=== PATIENT | female | born 1990 | race Two or more races ===

== ENCOUNTER 2024-11-03 22:46 | Emergency (ER) | payer MEDICAID, SELFPAY ==
[2024-11-03 22:47] VITALS: BMI 23.9
[2024-11-03 23:04] VITALS: BP 124/80; PULSE 74; RESP 18; TEMP 37.2; O2SAT 100
[2024-11-03] MEDS: METOCLOPRAMIDE 5 MG TABLET 10 MG PO (23:20)
[2024-11-03 23:28] LABS: Collection Type, Urine Clean Catch
[2024-11-03 23:49] LABS: Basophils % (Auto) 0 % (0-2.5); Eosinophils % (Auto) 0 % (0-10); Hematocrit 25.2 % (36.0-46.0); Immature Granulocytes % (Auto) 0 % (0-0); Immature Granulocytes Auto 0.01 Thou/mm3 (0.00-0.00); Lymphocytes # (Auto) 1.4 Thou/mm3 (1.0-4.8); Lymphocytes % (Auto) 23 % (10-50); Mean Corpuscular HGB Conc 27.8 g/dl (31.0-37.0); Mean Corpuscular Hemoglobin 20.7 pg (25.0-35.0); Mean Corpuscular Volume 75 fL (80-100); Monocytes # (Auto) 0.8 Thou/mm3 (0.0-0.8); Monocytes % (Auto) 12 % (0-12); Neutrophils # (Auto) 4.2 Thou/mm3 (1.8-7.7); Neutrophils % (Auto) 65 % (37-80); Nucleated Red Blood Cell % 0 /100 WBC (0); Platelet Count 323 Thou/mm3 (140-440); RDW Standard Deviation 58.8 fL (36.4-46.3); Red Blood Count 3.38 Miln/mm3 (4.00-5.20); White Blood Count 6.4 Thou/mm3 (3.6-11.0)
[2024-11-04] VITALS (12 sets, daily range): BP systolic 106–122; BP diastolic 58–69; PULSE 62–93; RESP 16–18; TEMP 36.8–37.4; O2SAT 100
[2024-11-04] LABS: Bilirubin,Urine Negative (Negative); Blood,Urine Negative (Negative); Clarity,Urine Turbid (Clear/Hazy); Color,Urine Lt-Yellow (Lt Yel-Yel); Culture Indicated,Urine Not Indicated; Glucose, Urine Negative (Negative); Ketones,Urine Negative (Negative); Leukocyte Esterase,Urine Positive (Negative); Nitrite,Urine Negative (Negative); Protein,Urine Trace (Neg - Trace); RBC,Urine 2 /hpf (0-3); Specific Gravity,Urine 1.023 (1.001-1.035); Squamous Epithelial Cell,Urine 10 /hpf (0-5); Urobilinogen,Urine Negative mg/dL (0.0-1.0); WBC,Urine 5 /hpf (0-5)
[2024-11-04 00:02] LABS: Amphetamine/Methamp Scrn,U Positive (Negative); Barbiturate Screen,Urine Negative (Negative); Benzodiazepines Screen,Urine Negative (Negative); Benzoylecgonine Screen, Ur Negative (Negative); Fentanyl Screen,Urine Negative (Negative); Opiate Screen,Urine Negative (Negative); THC Screen,Urine Positive (Negative)
[2024-11-04 00:04] LABS: HCG Qualitative,Urine Positive
--- NOTE | 2024-11-04 00:08 | XR_ITS ---
Examination: OB Transvaginal ultrasound of the pelvis, complete Technique: Transvaginal sonographic images pelvis performed using celestin scale imaging Exam date and time: November 04, 2024 0114 hours INDICATIONS: Recent positive test, patient feels sick today FINDINGS: Uterus 11.7 x 7.3 x 8.9 cm pole 1.174 corresponds to 8 weeks 1 day gestational age Cardiac motion 173 BPM Right ovary 3.5 x 1.8 x 2.2 cm arterial flow Left ovary obscured by bowel gas IMPRESSION: Viable intrauterine gestation 8 weeks 1 day.
[2024-11-04 00:44] LABS: Alanine Aminotransferase 8 U/L (10-49); Albumin, Serum 4.4 gm/dL (3.5-5.0); Albumin/Globulin Ratio 1.5 (1.2-2.2); Alcohol, Blood Medical < 3.0 mg/dL (0-10.0); Alkaline Phosphatase 76 U/L (46-116); Anion Gap 7 (7-16); Aspartate Amino Transferase 19 U/L (0-34); BUN/Creatinine Ratio 15 Ratio (12-20); Bilirubin,Total 0.4 mg/dL (0.3-1.2); Blood Urea Nitrogen 9 mg/dL (9-23); Calcium 9.5 mg/dL (8.3-10.6); Calcium (Corrected) 9.5 mg/dL (8.5-10.1); Carbon Dioxide 25.2 mMol/L (20.0-31.0); Chloride 105 mMol/L (98-107); Creatinine (Component) 0.6 mg/dL (0.6-1.3); Estimated Creatinine Clearance 108.3 mL/min (>60); Globulin 2.9 gm/dL (2.3-3.5); Glucose 105 mg/dL (74-106); Lipase 37 U/L (12-53); Osmolality,Calculated 272 (275-295); Potassium 4.2 mMol/L (3.4-5.1); Sodium 137 mMol/L (136-145); Total Protein 7.3 gm/dL (5.7-8.2); eGFR > 60 See Note
[2024-11-04 01:15] LABS: Prothrombin Time 10.9 Seconds (9.0-12.2)
[2024-11-04 02:43] LABS: Beta HCG,Quantitative 274419 mIU/mL (<5.0)
--- NOTE | 2024-11-04 03:17 | PRELIM_ITS ---
Obstetric ultrasound (transvaginal) with doppler and wave doppler spectral analysis. November 04 4 at 0114 hours Clinical history: Nausea/vomiting; incidentally positive.Technique: Real-time ultraso und was performed using Duplex scanning including arterial inflow, venous outflow, color and spectral Doppler analysis of both ovaries.Comparison: No prior study is available for comparison. Findings:Th ere is an intrauterine gestation with a single live fetus of mean gestational age 8 weeks and 1 days (CRL= 1.74 cm). cardiac activity is present at heart rate of 173 beats per minute. The yolk sa c is visualized.The uterus measures 11.7 x 7.3 x 8.9 cm.The right ovary measures 3.5 x 1.8 x 2.2 cm a nd is unremarkable. Normal blood flow in the right ovary with normal wave Doppler spectral analysis.T he left ovary was not visualized.There is no free fluid in the pelvis.Impression:Intrauterine gestati on with a single live fetus of mean gestational age 8 weeks and 1 days. Report Electronically Signed By: Alexandru Salgado 11/04/2024 3:16:37 AM [EST]
--- NOTE | 2024-11-04 05:27 | PD.EDNV ---
Nausea/Vomit./Diarrhea-RME/HPI General Chief complaint: Nausea/Vomiting/Diarrhea Stated complaint: VOMITING Time Seen by Provider: 11/03/24 23:12 Arrival date/time: 11/03/24 22:46 34F with history of SAJI and drug use presents to ED with several days of N/V. Patient denies diarrhea, dysuria, and vaginal bleeding. Limitations: no limitations Related Data Previous Rx's ?Medication ?Instructions ?Recorded cefpodoxime 200 mg tablet 200 mg PO BID #21 tabs 06/07/20 ferrous fumarate 325 mg (106 mg 325 mg PO BID #20 tabs 06/07/20 iron) tablet doxylamine 10 mg-pyridoxine (vit 1 tab PO QDAY #60 tabs 11/04/24 B6) 10 mg tablet,delayed release (Diclegis) Allergies Allergy/AdvReac Type Severity Reaction Status Date / Time No Known Allergies Allergy Verified 11/03/24 22:49 Review of Systems Review of Systems Systems Reviewed: All systems reviewed, normal except as documented Constitutional Constitutional: Reports system reviewed and no additional complaints, except as documented, Denies fever(s) and Denies headache(s) ENT Ears, Nose, Mouth, and Throat: Denies disequilibrium and Denies headache(s) Cardiovascular Cardiovascular: Reports system reviewed and no additional complaints, except as documented, Denies chest pain and Denies dyspnea Respiratory Respiratory: Reports system reviewed and no additional complaints, except as documented, Denies cough and Denies dyspnea Gastrointestinal Gastrointestinal: Reports system reviewed and no additional complaints, except as documented, Reports as per HPI, Denies abdominal pain, Reports nausea and Reports vomiting Neurologic Neurologic: Reports system reviewed and no additional complaints, except as documented, Denies confusion, Denies disequilibrium and Denies headache(s) Psychiatric Psychiatric: Denies confusion Past Medical History Past Medical History NEUROLOGIC: Negative Neurological Disorders CARDIAC: Negative Cardiac Disorders or Congestive Heart Failure RESPIRATORY: Negative Chronic Obstructive Pulmonary Disease (COPD) or Asthma GENITOURINARY: Negative Genitourinary Disorders or Renal Disease REPRODUCTIVE: Positive Previous Pregnancies; Negative Pelvic Inflammatory Disease MUSCULOSKELETAL: Negative Musculoskeletal Disorders ENDOCRINE: Negative Diabetes Mellitus Type 1 or Diabetes Mellitus Type 2 HEMATOLOGIC: Positive Anemia; Negative Sickle Cell Disease OTHER HISTORY: Negative Autoimmune Disease, Blood Transfusions, Anesthesia Reactions, MRSA or Cancer Social History SMOKING STATUS: Current every day smoker ED Exam General Limitations: Present no limitations General appearance: Present alert and in no apparent distress Head Head exam: Present atraumatic Eye Eye exam: Present normal appearance, PERRL and EOMI ENT ENT exam: Present normal exam, normal oropharynx and mucous membranes moist Neck Neck exam: Present normal inspection, full ROM and trachea midline Chest Chest inspection: Present normal inspection and symmetric chest wall rise Respiratory Respiratory exam: Present normal lung sounds bilaterally Cardiovascular Cardiovascular exam: Present regular rate, normal rhythm and normal heart sounds Abdominal Exam Abdominal exam: Present soft and normal bowel sounds Extremities Exam Extremities exam: Present normal inspection and full ROM Back Exam Back exam: Present normal inspection and full ROM Neurological Exam Neurological exam: Present alert, oriented X3 and CN II-XII intact Psychiatric Psychiatric exam: Present normal affect and normal mood Skin Skin exam: Present warm, dry, intact and normal color Course Quality Measures none Orders Category Date Time Status Insert IV NOW Care 11/04/24 00:09 Active US OB transvaginal Stat Exams 11/04/24 00:08 Taken Alcohol, Blood Medical Stat Lab 11/03/24 23:31 Completed Beta HCG,Quantitative Stat Lab 11/03/24 23:31 Completed CBC Stat Lab 11/03/24 23:31 Completed CMP [Comprehensive Metabolic Panel] Stat Lab 11/03/24 23:31 Completed Drug Screen,Urine Stat Lab 11/03/24 23:18 Completed HCG Qualitative,Urine Stat Lab 11/03/24 23:18 Completed INR [Prothrombin Time with INR] Stat Lab 11/04/24 00:34 Completed Lipase Stat Lab 11/03/24 23:31 Completed PTT [Partial Thromboplastin Time] Stat Lab 11/04/24 00:34 Completed Type and Screen Stat Lab 11/04/24 00:34 Completed Urinalysis, C/S if Indicated Stat Lab 11/03/24 23:18 Completed prbc [Red Blood Cells] Stat Lab 11/04/24 00:34 Completed Metoclopramide [Reglan] Med 11/03/24 23:12 Discontinued 10 mg PO X1 ONE Vital Signs Vital signs: Vital Signs Temperature 98.9 F 11/03/24 23:04 Pulse Rate 74 11/03/24 23:04 Respiratory Rate 18 11/03/24 23:04 Blood Pressure 124/80 11/03/24 23:04 Pulse Oximetry (%) 100 11/03/24 23:04 Oxygen Delivery Method Room Air 11/03/24 23:04 O2 at 100% on RA and WNLs Nausea/Vomiting/Diarrhea MDM Narrative MDM Narrative:: 34F with history of SAJI and drug use presents to ED with several days of N/V. Patient denies diarrhea, dysuria, and vaginal bleeding. Physical exam reveals no ab tenderness. Patient is afebrile, calm, and alert. HCG incidentally positive. Beta HCG around 275K. US reveals 8 wk normal IUP. HgB 7.0. Will transfuse given status. UA clean. Tox screen marijuana/meth+. N/V relieved with Reglan. Will DC with Diclegis. Patient data External records reviewed:: [facility] previous records Clinical information provided by:: patient Social determinants that could affect healthcare access:: substance use Patient has the following chronic illnesses:: drug use and SAJI How is presenting disease/condition affected by chronic disease/condition?: exacerbated by Evaluation data The following diagnostics were reviewed and interpreted by me:: lab results and radiology exam(s) Lab and/or radiology exams considered but not ordered:: ordered Interpretation Summary: above Medications / Prescriptions Medications / Prescriptions considered but not ordered:: ordered Medication administrations:: Medication Administration History Discontinued Medications Metoclopramide HCl (Metoclopramide 5 Mg Tablet) 10 mg PO X1 ONE Stop: 11/03/24 23:13 Last Admin: 11/03/24 23:20 Dose: 10 mg Documented By: CVL above Consultations Consultation(s) initiated? (list below): No Diagnosis Nausea Differential Diagnosis: traveler's diarrhea, food poisoning, gastroenteritis, clostridium difficile infection, drug-induced nausea and vomiting, dehydration and other (drug use/anemia/N/V during ) Most likely diagnosis given after review of the tests above:: drug use/anemia/N/V during Admission Indicated Admission indicated?: not indicated Admission Request Was there a request for admission?: No Disposition Plan Disposition Plan: Discharge Discharge Attestation Discharge Attestation: The patient and all family members were given an opportunity to ask questions and understood the discharge instructions. Discharge instructions specifically effects, indications for sooner follow up or return to the emergency department, and the expected course of current diagnosis. Patient condition: Stable Discharge Plan Plan Patient Disposition: HOME (Self Care) Disposition Comment: Stable Prescriptions/Referrals Prescriptions/Med Rec: New doxylamine-pyridoxine (vit B6) [Diclegis] 10-10 mg tablet,delayed release (DR/EC) 1 tab PO QDAY Qty: 60 0RF No Action cefpodoxime 200 mg tablet 200 mg PO BID Qty: 21 0RF Rx Instructions: must administer with a meal/food ferrous fumarate 325 mg (106 mg iron) tablet 325 mg PO BID Qty: 20 0RF Referrals: No Primary/Family,Physician [Primary Care Provider] - In 1 week Problem List Clinical Impression: Anemia during , Nausea and vomiting during , Drug use during Patient/Caregiver Discharge Instructions Education Materials: Anemia During Additional Instructions: Please follow-up with PCP/OBGYN within 24-48 hours and return immediately if symptoms worsen. Stop using drugs. Print Language: Spanish Stand Alone Forms: Patient Portal Info Letter PA/[place] [employer] Supervising Physician DEBRA/TIMOTHY Supervising Physician: Dr. Gonzalez
== END 2024-11-04 07:23 | disposition home or self-care (01) ==
PROVIDERS: Physician Assistant; Emergency Provider Emergency Medicine
DX: O99.011 Anemia complicating pregnancy, first trimester (principal); D64.9 Anemia, unspecified; O21.9 Vomiting of pregnancy, unspecified; O99.321 Drug use complicating pregnancy, first trimester; F15.90 Other stimulant use, unspecified, uncomplicated; F12.90 Cannabis use, unspecified, uncomplicated; Z3A.08 8 weeks gestation of pregnancy
CPT/HCPCS: 36415; 36430; 76817; 80053; 80307; 80320; 81001; 81025; 83690; 84702; 85025; 85610; 85730; 86850; 86900; 86901; 86923; 99285; P9016; A9270; G0480